=== PATIENT | male | born 1960 | race African-American/Black ===

== ENCOUNTER 2019-04-26 22:12 | Emergency (ER) | payer OTHER ==
[~2019-04-26] VITALS: Ht 172.7 cm; Wt 82.0 kg
[2019-04-26] MEDS ORDERED: CLONIDINE 0.2MG TABLET PO ONE (23:15)
[2019-04-26] MEDS ORDERED: ONDANSETRON HCL 4MG/2ML INJ IV ONE (23:15)
[2019-04-26] MEDS ORDERED: ALPRAZOLAM 0.5 MG TABLET PO ONE (23:30)
[2019-04-26] MEDS ORDERED: SODIUM CHLORIDE 0.9% 1,000 ML IV ONE (23:30)
[2019-04-26 23:45] LABS: CHLORIDE 106 mEq/L (98-107)
[2019-04-26 23:46] LABS: BASOPHILS % 0.9 % (0.0-2.0); EOSINOPHILS % 1.6 % (0.0-5.0); HEMATOCRIT. 47.2 % (42.0-52.0); LYMPHOCYTES % 22.4 % (20.0-50.0); MEAN CORPUSCULAR HEMOGLOBIN 31.4 pg (28.0-32.0); MEAN CORPUSCULAR VOLUME 92.6 fL (80.0-94.0); MEAN PLATELET VOLUME 9.6 fl (7.4-10.4); MONOCYTES % 4.8 % (2.0-8.0); NEUTROPHILS % 70.3 % (40.0-76.0); PLATELET 223 x1000/uL (130-400); RED CELL DISTRIBUTION WIDTH 14.4 % (11.6-14.6)
[2019-04-27] MEDS ORDERED: CLONIDINE 0.1MG TABLET PO SCH (00:30)
[2019-04-27 01:25] VITALS: BP 135/87
== END 2019-04-27 01:25 | disposition home or self-care (01) ==
LOC: ER 22:12
DX: F10.129 Alcohol abuse with intoxication, unspecified (principal); J18.9 Pneumonia, unspecified organism; I16.1 Hypertensive emergency; I10 Essential (primary) hypertension; N28.9 Disorder of kidney and ureter, unspecified; E11.9 Type 2 diabetes mellitus without complications; I25.2 Old myocardial infarction; F14.10 Cocaine abuse, uncomplicated; F17.200 Nicotine dependence, unspecified, uncomplicated; Y90.9 Presence of alcohol in blood, level not specified
CPT/HCPCS: 36415; 70450; 71045; 80053; 80320; 83880; 84484; 85025; 93005; 96374; 99291; 99406; J2405; J7030; G0480

== ENCOUNTER 2025-05-04 11:07 | Emergency (ER) | payer OTHER ==
[~2025-05-04] VITALS: Ht 175.3 cm; Wt 113.0 kg
[~2025-05-04 11:07] MED LIST: ALLO100T PO; AMLO5TAB88 PO; ASPI-1406 PO; FURO40TA5 PO; GABA-534 PO; LOSA25TA26 PO; METO-396 PO; SPIR25TA6 PO
[2025-05-04 11:08] VITALS: O2SAT 100
[2025-05-04 12:27] LABS: CHLORIDE 105 mEq/L (98-107); POTASSIUM 4.1 mEq/L (3.5-5.1); SODIUM 137 mEq/L (136-145)
[2025-05-04 12:28] LABS: CARBON DIOXIDE 26 mEq/L (21-32)
[2025-05-04 12:29] LABS: CALCIUM 9.2 mg/dL (8.7-10.4)
[2025-05-04 12:33] LABS: GLUCOSE 130 mg/dL (70-105); UREA NITROGEN BLOOD 21 mg/dL (9-23)
[2025-05-04 12:39] LABS: CLARITY URINE CLEAR (CLEAR); COLOR URINE YELLOW (YELLOW); GLUCOSE URINE 3+ (NEGATIVE); KETONES URINE NEGATIVE (NEGATIVE); LEUKOCYTE ESTERASE URINE NEGATIVE (NEGATIVE); NITRITE URINE NEGATIVE (NEGATIVE); OCCULT BLOOD URINE NEGATIVE (NEGATIVE); PH URINE 5.5 (4.5-8.0); PROTEIN URINE NEGATIVE (NEGATIVE); SPECIFIC GRAVITY URINE 1.013 (1.005-1.030)
[2025-05-04 12:49] LABS: SQUAMOUS EPITHELIAL CELL URINE RARE /lpf (RARE/1+)
[2025-05-04 12:50] LABS: HYALINE CASTS URINE 0-5 /lpf
[2025-05-04 12:52] LABS: FINE GRANULAR CASTS URINE 0-5 /lpf; RBC URINE NONE SEEN /hpf (0-2); WBC URINE 0-2 /hpf (0-2)
[2025-05-04 12:53] LABS: BACTERIA URINE NONE SEEN
[2025-05-04 13:40] LABS: CREATININE 1.7 mg/dL (0.6-1.3)
[2025-05-04 13:45] VITALS: PULSE 84; RESP 22
[2025-05-04] MEDS: ALBUTEROL (0.083%) 2.5MG/3ML NEB HHN STA (13:45)
[2025-05-04] MEDS: IPRATROPIUM BROMIDE (0.02%) 0.5MG/2.5ML NEB HHN STA (13:46)
[2025-05-04 13:59] LABS: BASOPHILS % 0.8 % (0.0-2.0); DIFFERENTIAL COMMENT 0; EOSINOPHILS % 2.2 % (0.0-5.0); HEMATOCRIT. 44.7 % (42.0-52.0); HEMOGLOBIN. 14.2 g/dL (14.0-18.0); LYMPHOCYTES % 21.6 % (20.0-50.0); MEAN CORPUSCULAR HGB CONC 31.8 g/dL (31.0-37.0); MEAN CORPUSCULAR VOLUME 94.1 fL (80.0-94.0); MEAN PLATELET VOLUME 8.6 fl (7.4-10.4); NEUTROPHILS % 62.4 % (40.0-76.0); PLATELET 215 x1000/uL (130-400); RED BLOOD CELL COUNT 4.75 mill/uL (4.7-6.1); RED CELL DISTRIBUTION WIDTH 17.9 % (11.6-14.6); WHITE BLOOD COUNT 5.9 x1000/uL (4.5-11.0)
[2025-05-04 14:39] LABS: TROPONIN I HIGH SENSITIVITY 71 ng/L (3.0-53)
[2025-05-04 18:17] VITALS: BP 122/92; PULSE 80; RESP 16; TEMP 36.6; O2SAT 100
== END 2025-05-04 18:30 | disposition short-term general hospital (02) ==
LOC: ER 11:07 → EDBEDREQTM 15:05 → EDBEDREQSVC 15:05 → CANBEDREQ 16:59 → ER 18:30
DX: I50.9 Heart failure, unspecified (principal); R07.89 Other chest pain; J45.909 Unspecified asthma, uncomplicated; I25.2 Old myocardial infarction; Z79.82 Long term (current) use of aspirin; Z79.899 Other long term (current) drug therapy
CPT/HCPCS: 80048; 81003; 83880; 85025; 84484; 36415; 71101; 94640; 93005; 99285; Z7610 ×4; 94070